=== PATIENT | male | born 1955 | race Caucasian/White ===

== ENCOUNTER 2017-02-07 14:14 | Emergency (ER) | payer OTHER ==
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
[~2017-02-07 14:14] MED LIST: ANDROGEL150 GM TOP; FOSINOPRIL PO; KAPIDEX60 MG PO; MULTI-VIT/MIN P1 TAB; MULTIPLE VITAMI1 T12 PO; NEXIUM; UROXATRAL10 MG PO
[2017-02-07] MEDS ORDERED: ESOMEPRAZOLE MA40 MG PO (14:15)
[2017-02-07] MEDS ORDERED: ZANTAC300 MG PO (14:15)
[2017-02-07] MEDS ORDERED: DEXILANT60 MG PO (14:15)
[2017-02-07] MEDS ORDERED: LEXAPRO20 MG DOB (14:16)
[2017-02-07] MEDS ORDERED: PROPECIA1 MG PO (14:16)
[2017-02-07] MEDS ORDERED: LOTREL 5-40 MG1 EACH PO (14:16)
[2017-02-07 14:20] LABS: URINE SOURCE CLEAN CATCH
[2017-02-07 14:24] LABS: URINE APPEARANCE CLEAR; URINE BLOOD NEG (NEG); URINE COLOR DK YELLOW; URINE GLUCOSE NEG (NEG); URINE KETONE TRACE (NEG); URINE LEUKOCYTE ESTERASE TRACE (NEG); URINE NITRATE NEG (NEG); URINE PROTEIN 2+ (NEG); URINE SPECIFIC GRAVITY 1.021 (1.003-1.035)
[2017-02-07 14:26] LABS: URINE BACTERIA AUWI NEG (NEGATIVE); URINE SQUAMOUS EPITHELIAL CELL NONE SEEN /[HPF]; UWBCS1 AUWI 0-2 (0-5)
[2017-02-07 14:29] LABS: URINE BILIRUBIN NEG (NEG)
[2017-02-07 14:40] LABS: CULTURE INDICATED? NO
[2017-02-07 14:41] LABS: URINE GRANULAR CAST 0-2 /[HPF]
== END 2017-02-07 17:57 | disposition home or self-care (01) ==
LOC: CED 14:14
PROVIDERS: Emergency Medicine
DX: S80.02XA Contusion of left knee, initial encounter (principal); S30.1XXA Contusion of abdominal wall, initial encounter; I10 Essential (primary) hypertension; K21.9 Gastro-esophageal reflux disease without esophagitis; V43.52XA Car driver injured in collision with other type car in traffic accident, initial encounter; Y92.410 Unspecified street and highway as the place of occurrence of the external cause
CPT/HCPCS: 71020; 73562; 81003; 99284

== ENCOUNTER → 2017-04-11 | Outpatient (CLI) | payer OTHER ==
[~2017-04-11] MED LIST changes: +DEXILANT60 MG PO; +ESOMEPRAZOLE MA40 MG PO; +LEXAPRO20 MG DOB; +LOTREL 5-40 MG1 EACH PO; +PROPECIA1 MG PO; +ZANTAC300 MG PO
[2017-04-11 11:27] LABS: BASOPHIL% 0.8 % (0-2.5); EOSINOPHIL# 0.2 X10e3 (0-0.7); EOSINOPHIL% 3.6 % (0.0-7.0); HEMATOCRIT 49.8 % (38.0-50.0); HEMOGLOBIN 17.1 gm/dL (13.0-16.0); LYMPHOCYTE# 0.9 X10e3 (1.0-3.5); LYMPHOCYTE% 18.2 % (17.0-45.0); MEAN CELL VOLUME 96.8 FL (83-96); MEAN CORPUSCULAR HEMOGLOBIN 33.2 PG (28-34); MEAN CORPUSCULAR HGB CONC 34.3 g/dL (30-36); MONOCYTE# 0.7 X10e3 (0-1.0); MONOCYTE% 13.2 % (3.0-12.0); NEUTROPHIL# 3.3 X10e3 (1.5-7.1); NEUTROPHIL% 64.2 % (40-75); PLATELET COUNT 257 X10e3 (140-420); RED BLOOD COUNT 5.15 X10e (3.90-5.60); RED CELL DISTRIBUTION WIDTH 12.2 % (11.0-15.5); WHITE BLOOD COUNT 5.1 X10e3 (4.0-10.5)
[2017-04-11 11:30] LABS: DIFF IND NO
== END | disposition home or self-care (01) ==
LOC: CLAB 10:46
PROVIDERS: Podiatrist Foot & Ankle Surgery
DX: M19.079 Primary osteoarthritis, unspecified ankle and foot (principal)
CPT/HCPCS: 36415; 85025; 85652; 86140; 86430